=== PATIENT | male | born 1965 | race Caucasian/White ===

== ENCOUNTER 2021-09-07 02:33 | Outpatient (CLI) | payer BC, SELFPAY ==
[2021-09-07 11:10] LABS: Source Nasal/Nares
[2021-09-07 14:10] LABS: COVID-19 PCR Negative (Negative)
== END 2021-09-07 02:34 | disposition home or self-care (01) ==
LOC: LBO 02:33
PROVIDERS: PCP Family Medicine; Visit Provider Ophthalmology
DX: Z20.822 Contact with and (suspected) exposure to COVID-19 (principal); Z01.818 Encounter for other preprocedural examination
CPT/HCPCS: 87635

== ENCOUNTER 2021-09-10 06:59 | Day surgery (SDC) | payer BC, SELFPAY ==
[2021-09-10 07:06] VITALS: BP 122/89; PULSE 79; RESP 16; TEMP 36.3; O2SAT 97
[2021-09-10] MEDS: Tropicam./Phenyleph. (1/2.5%) 5 ML BTL OD ×3 (07:19→07:31)
--- NOTE | 2021-09-10 08:06 | ANES.PREOP_ITS ---
General Info Date of Service Date Performed: 09/10/21 Height: 5 ft 9.5 in Weight: 74.2 kg Body Mass Index (BMI): 23.8 Surgical Procedure: Operation Date: 09/10/21 08:40 Proposed Procedures Side Surgeon p Cataract Extraction with IOL Implant Right Joao Hogan MD Meds Allergies and Home Medications Allergies Allergy/AdvReac Type Severity Reaction Status Date / Time No Known Allergies Allergy Unverified 09/04/21 13:49 Home Medication Medication Instructions Recorded atorvastatin 10 mg PO DAILY 09/04/21 Current Visit Medications: Current Medications Generic Name Dose Route Start Last Admin Trade Name Freq PRN Reason Stop Dose Admin Acetaminophen 1,000 mg 09/10/21 06:00 Acetaminophen 500 Mg Tab PO Q4H PRN PRN Miscellaneous Medication 0 ml 09/10/21 06:00 Prednisolone 1%, Moxifloxacin 0.5%, Nepafenac 0.1% 5ml Btl OD DIRECTED [facility] Miscellaneous Medication 0 ml 09/10/21 06:00 09/10/21 07:26 Tropicam./Phenyleph. (1/2.5%) 5 Ml Btl OD 1 drp DIRECTED [facility] Administration Tetracaine HCl 0 ml 09/10/21 06:00 Tetracaine 0.5% 4 Ml Btl OD [facility] Medical History Medical History HLD (hyperlipidemia) Medial epicondylitis Rotator cuff syndrome of right shoulder Superficial vein thrombosis Tobacco Smoking/Tobacco Use Status: Former Tobacco Use Alcohol Alcohol Intake: current Alcohol intake frequency: a few times a week Substance Use Substance use: Never Substance use type: does not use Vital Signs and Lab Results Vital Signs Most Recent Vital Signs in EMR: Most Recent Vital Signs Temp Pulse Resp BP Pulse Ox 36.3 C L 79 16 122/89 97 09/10/21 07:06 09/10/21 07:06 09/10/21 07:06 09/10/21 07:06 09/10/21 07:06 Lab Results Blood Type / Crossmatch: No Data to Display Complete Blood Count: No Data to Display Complete Metabolic Panel: No Data to Display Liver Function Panel: No Data to Display Coagulation Panel: No Data to Display Cardiac Panel: No Data to Display Arterial Blood Gas: No Data to Display Venous Blood Gas: No Data to Display Pancreas Panel: No Data to Display Thyroid Panel: No Data to Display Infectious Disease: Coronavirus (COVID-19)(PCR) Negative (Negative) 09/07/21 08:58 09/07/21 Coronavirus 2019 Source Nasal/Nares 09/07/21 08:58 09/07/21 Blood Cultures: No Data to Display Toxicology Panel: No Data to Display Anesthesia Assessment and Plan Anesthesia History Personal History: No History of Anesthesia Complications Family History: No Family History of Anesthesia Complications Exercise Tolerance Exercise Tolerance: Metabolic Equivalents>4 Pertinent Negatives Pertinent Negatives: No Symptoms of GERD, No Major Cardiovascular Symptoms or Complaints, No Major Pulmonary Symptoms or Complaints and No History of CVA/TIA Cardiac & Pulmonary Exam Cardiac Exam: Normal S1/S2 Heart Sounds Pulmonary Exam: Clear Bilateral Breath Sounds Implantable Cardiac Device Does patient have a Pacemaker or an ICD?: No Airway Exam Known Difficult Airway: No Mallampati Class: 1 Mouth Opening: Normal (> 3cm) Thyromental Distance: Greater than 3 cm Neck Range of Motion: Full ROM Neck Circumference: Normal Teeth Condition: Normal Dentition ASA Classification ASA Score: ASA 2 Emergency Case?: No NPO Status NPO Status: NPO Clears >2 hours, Solids >8 hours Anesthesia Plan Resuscitation Status: Full Code Anesthesia Technique: MAC Anesthesia Airway Planned: Natural Airway Monitors Used: Standard Monitors
[2021-09-10 08:07] VITALS: BMI 23.8
[2021-09-10] MEDS: Povidone-Iodine Ophth 30 ML BTL (08:15)
[2021-09-10] MEDS: Lidocaine 2% Jelly 6 ML SYR (08:15)
[2021-09-10] MEDS: Tetracaine 0.5% 4 ML BTL OD (08:15)
[2021-09-10] MEDS: Duovisc Viscoelastic System EACH 1 EACH (08:22)
[2021-09-10] MEDS: Balanced Salt Soln.-PLUS 500 ML BAG (08:22)
[2021-09-10] MEDS: Trypan Blue 0.06% 0.5 ML SYR (08:25)
--- NOTE | 2021-09-10 08:44 | W.PM.DSUDISC ---
Discharge Plan Disposition Patient Disposition: HOME Condition: Good Discharge Details Attending Provider: Joao Hogan Primary Care Provider: Arnav Aranda Home Meds and New Rx's Prescriptions: No Action atorvastatin 10 mg tablet 10 mg PO DAILY RF: 0 Discharge Instructions Stand Alone Forms: Post-op Topical Cataract, Nuno Robles (DSU) Discharge Orders Discharge Orders: Discharge Order (Routine); Ordered 09/10/21 Ordered By: Joao Hogan DS: Diagnosis Discharge Diagnosis (1) Cortical cataract of right eye: Status: Resolved (2) Nuclear sclerotic cataract of right eye: Status: Resolved (3) Posterior subcapsular age-related cataract, right eye: Status: Resolved
[2021-09-10 08:45] VITALS: BP 79/46; PULSE 51; RESP 16; TEMP 36.6; O2SAT 96
--- NOTE | 2021-09-10 08:47 | ROE_ITS ---
Date of service: 09/10/21 Time of Service: 08:47 Operative Note Operative Note DATE OF PROCEDURE: 09/10/21 PRE-OP DIAGNOSIS: Nuclear/cortical/posterior subcapsular cataract, right eye Poor red reflex, right eye secondary to cataract POST-OP DIAGNOSIS: same PROCEDURE: Cataract extraction using phacoemulsification with intraocular lens implantation, right eye, using capsular staining with Vision Blue SURGEON: Joao Hogan ANESTHESIA TYPE: Local By Surgeon and MAC Refer to Anesthesia Record PATHOLOGY: none sent COMPLICATIONS: None Patient was transported to: same day Patient's condition: stable Implants: Jose [employer] Jose [employer] Opt[employer] Tecnis [id number] Indications: Progressive visual loss due to cataract, right eye Procedure Description: CATARACT SURGERY OPERATIVE REPORT PREOPERATIVE DIAGNOSIS: 1. Nuclear/cortical/posterior subcapsular cataract, right eye 2. Poor red reflex secondary to #1 POSTOPERATIVE DIAGNOSIS: Same OPERATION: 1. Cataract extraction using phacoemulsification with posterior chamber intraocular lens implant, right eye. 2. Capsular staining with Vision Blue IOL: IOL Selling Specialist/Model: Jose & Jose / ELEANOR Tecnis [id number] IOL Power: + 10.5 diopters IOL Serial Number: [id number] Optic Diameter: 6.0mm Haptic/Overall Diameter: 13.0mm PHACO INFO: Michael [employer] Radiourion Vision System with OZil and Active Fluidics Cumulative Dispersed Energy (CDE): 5.32 seconds SURGEON: Joao Hogan MD, JED ANESTHESIA: Monitored Anesthesia Care (MAC), with local sub-tenon's anesthetic infiltration COMPLICATIONS: None SPECIMENS: None INDICATIONS FOR PROCEDURE: The patient is a 56-year-old gentleman with history of high myopia who has developed a significant nuclear/cortical/posterior subcapsular cataract in the right eye. He is significantly symptomatic he desires cataract surgery and attempt to improve and maximize his vision. PROCEDURE: The correct surgical eye was identified and marked as the right eye and the pupil was dilated in the preoperative area using mydriatics and cycloplegics. The dilated pupil size was 8.0 mm. He elected to proceed without oral sedation. The patient was brought to the operating room where cardiopulmonary monitoring was instituted and surgical time-out was performed, confirming the correct operative eye and IOL power. Topical anesthesia was administered and ophthalmic povidone-iodine 5% was instilled into the conjunctival fornices. Lidocaine gel was applied to the cornea and the claudia-ocular area was prepped with Betadine 10% solution and draped in the usual sterile fashion for intraocular surgery, including an aperture drape. A Tegaderm transparent film dressing was cut in half and used to cover the lashes and lid margins. Care was taken to sequester the lashes and lid margins under the Tegaderm dressing. A lid speculum was placed between the lids of the operative eye and the Akiko-Dottie operating microscope was maneuvered into position. Stan scissors were then used to make a conjunctival buttonhole approximately 6mm posterior to the limbus in the inferonasal quadrant. Blunt dissection was carried out to expose bare sclera, and a blunt-tipped sub-tenon?s anesthesia cannula was introduced and passed posteriorly along the globe where non- preserved plain lidocaine was injected into posterior sub-Tenon?s space. A sideport knife was used to make a paracentesis port inferotemporally. Intraocular phenylephrine/lidocaine was injected into the anterior chamber. Air was injected into the anterior chamber, followed by Vision Blue, which was painted over the anterior capsule and then irrigated out with BSS. The anterior chamber was filled with viscoelastic. A 2.4mm keratome knife was used to create a half-thickness groove at the limbus and then to construct a three-plane near- clear corneal tunnel extending 2.0mm into clear cornea superiortemporally. A flap was raised on the anterior capsule and capsulorhexis forceps were used to complete a continuous curvilinear capsulorhexis of 5.5 mm. Balanced salt solution was then used to perform cortical cleaving hydrodissection and nuclear hydrodelineation until the lens could be freely rotated within the capsular bag. The lens nucleus was then disassembled and removed within the capsular bag and iris plane using phacoemulsification. Residual cortical material was removed using the I/A handpiece. The posterior capsule was carefully polished to remove as much residual lens epithelial cells as safely possible. The capsular bag was then inflated and the anterior chamber deepened with viscoelastic. The lens implant described above was inserted into the capsular bag using the ELEANOR [place] Injector. A Kuglen hook was used to dial the IOL into position. Residual viscoelastic was then removed first from posterior to the IOL, then from the anterior chamber using the I/A handpiece. The lens implant was noted to center nicely within the capsular bag. The incisions were stromally hydrated, and the anterior chamber was reformed using BSS. Then 0.5cc of moxifloxacin 1.0mg/ml were injected into the capsular bag and anterior chamber. The incisions were checked with a Weck spear and found to be secure. Several drops of ophthalmic povidone-iodine 5% were then applied to the eye followed by two drops of Imprimis combination prednisolone/moxifloxacin/nepafenac solution. The drapes were removed and a clear plastic protective eye shield was placed over the eye. The patient was then returned to Same Day Surgery in stable condition.
--- NOTE | 2021-09-10 08:49 | W.ANESPOSTOP ---
Postoperative Evaluation Date, Time and Location Date Performed: 09/10/21 Time Performed: 08:55 Patient Location: Day Surgery Unit Vital Signs Most Recent Imported Vital Signs: Most Recent Vital Signs Temp Pulse Resp BP Pulse Ox 36.3 C L 79 16 122/89 97 09/10/21 07:06 09/10/21 07:06 09/10/21 07:06 09/10/21 07:06 09/10/21 07:06 Most Recent Manually Entered Vital Signs: Adult Blood Pressure: 101/69 Heart Rate: 70 Respirations: 10 Oxygen Saturation (%): 98 Temperature (C): 36.3 C Pain Score (0-10 Scale): 0 Pain Score Most Recent Pain Score: Most Recent Pain Score Pain Level 0 09/10/21 07:06 Assessment Mental Status: Awake (Alert & Oriented to Patient Baseline) Airway and Respiratory Function: Patent airway with normal (patient baseline) respiratory exam Cardiovascular Function: Hemodynamically Stable Hydration Status: Adequately Hydrated Nausea & Vomiting: No Nausea or Vomiting Pain: Pt. Denies Any Pain Peripheral Nerve Block: Patient did not receive a nerve block
[2021-09-10 08:50] VITALS: BP 107/75; PULSE 80; RESP 16; O2SAT 96
[2021-09-10 08:56] VITALS: BP 101/69; PULSE 70; RESP 10; TEMPC 36.3; O2SAT 98
== END 2021-09-10 09:25 | disposition home or self-care (01) ==
PROVIDERS: PCP Family Medicine; Visit Provider Ophthalmology
PROC: (CPT 66984; principal; 2021-09-10 08:30)
DX: H25.041 Posterior subcapsular polar age-related cataract, right eye (principal); E78.5 Hyperlipidemia, unspecified
CPT/HCPCS: 66984; V2632

== ENCOUNTER 2021-09-21 00:56 | Outpatient (CLI) | payer BC, SELFPAY ==
[2021-09-21 11:06] LABS: Source Nasal/Nares
[2021-09-21 22:07] LABS: COVID-19 PCR Negative (Negative)
== END 2021-09-21 00:57 | disposition home or self-care (01) ==
LOC: LBO 00:56
PROVIDERS: PCP Family Medicine; Visit Provider Ophthalmology
DX: Z20.822 Contact with and (suspected) exposure to COVID-19 (principal); Z01.818 Encounter for other preprocedural examination
CPT/HCPCS: 87635

== ENCOUNTER 2021-09-24 06:54 | Day surgery (SDC) | payer BC, SELFPAY ==
[2021-09-24] MEDS: Tropicam./Phenyleph. (1/2.5%) 5 ML BTL OS ×3 (07:12→07:24)
[2021-09-24 07:13] VITALS: BP 108/72; PULSE 77; RESP 16; TEMP 36.5; O2SAT 96
--- NOTE | 2021-09-24 07:33 | W.ANESPRE ---
General Info Date of Service Date Performed: 09/24/21 Height: 5 ft 9.5 in Weight: 74.2 kg Body Mass Index (BMI): 23.8 Surgical Procedure: Operation Date: 09/24/21 08:40 Proposed Procedures Side Surgeon p Cataract Extraction with IOL Implant Left Joao Hogan MD Meds Allergies and Home Medications Allergies Allergy/AdvReac Type Severity Reaction Status Date / Time No Known Allergies Allergy Unverified 09/24/21 07:11 Home Medication Medication Instructions Recorded atorvastatin 10 mg PO DAILY 09/04/21 Current Visit Medications: Current Medications Generic Name Dose Route Start Last Admin Trade Name Freq PRN Reason Stop Dose Admin Acetaminophen 1,000 mg 09/24/21 06:00 Acetaminophen 500 Mg Tab PO Q4H PRN PRN Miscellaneous Medication 0 ml 09/24/21 06:00 Prednisolone 1%, Moxifloxacin 0.5%, Nepafenac 0.1% 5ml Btl OS DIRECTED [facility] Miscellaneous Medication 0 ml 09/24/21 06:00 09/24/21 07:24 Tropicam./Phenyleph. (1/2.5%) 5 Ml Btl OS 1 drp DIRECTED [facility] Administration Tetracaine HCl 0 ml 09/24/21 06:00 Tetracaine 0.5% 4 Ml Btl OS DIRECTED [facility] PFSH Active Problems Active Problems: Problem Status Onset Code Posterior subcapsular age-related cataract of left eye H25.042 Nuclear sclerotic cataract of left eye H25.12 Posterior subcapsular age-related cataract, right eye H25.041 Nuclear sclerotic cataract of right eye H25.11 Cortical cataract of right eye H26.9 Medical History Medical History HLD (hyperlipidemia) Medial epicondylitis Rotator cuff syndrome of right shoulder Superficial vein thrombosis Tobacco Smoking/Tobacco Use Status: Former Tobacco Use Alcohol Alcohol Intake: current Alcohol intake frequency: a few times a week Substance Use Substance use: Never Substance use type: does not use Vital Signs and Lab Results Vital Signs Most Recent Vital Signs in EMR: Most Recent Vital Signs Temp Pulse Resp BP Pulse Ox 36.5 C 77 16 108/72 96 09/24/21 07:13 09/24/21 07:13 09/24/21 07:13 09/24/21 07:13 09/24/21 07:13 Lab Results Blood Type / Crossmatch: No Data to Display Complete Blood Count: No Data to Display Complete Metabolic Panel: No Data to Display Liver Function Panel: No Data to Display Coagulation Panel: No Data to Display Cardiac Panel: No Data to Display Arterial Blood Gas: No Data to Display Venous Blood Gas: No Data to Display Pancreas Panel: No Data to Display Thyroid Panel: No Data to Display Infectious Disease: Coronavirus (COVID-19)(PCR) Negative (Negative) 09/21/21 09:13 09/21/21 Coronavirus 2019 Source Nasal/Nares 09/21/21 09:13 09/21/21 Blood Cultures: No Data to Display Toxicology Panel: No Data to Display Anesthesia Assessment and Plan Anesthesia History Personal History: No History of Anesthesia Complications Family History: No Family History of Anesthesia Complications Exercise Tolerance Exercise Tolerance: Metabolic Equivalents>4 Pertinent Negatives Pertinent Negatives: No Symptoms of GERD Cardiac & Pulmonary Exam Cardiac Exam: Normal S1/S2 Heart Sounds Pulmonary Exam: Clear Bilateral Breath Sounds Implantable Cardiac Device Does patient have a Pacemaker or an ICD?: No Airway Exam Known Difficult Airway: No Mallampati Class: 2 Mouth Opening: Normal (> 3cm) Thyromental Distance: Greater than 3 cm Neck Range of Motion: Full ROM Neck Circumference: Normal Teeth Condition: Normal Dentition ASA Classification ASA Score: ASA 2 Emergency Case?: No NPO Status NPO Status: NPO Clears >2 hours, Solids >8 hours Anesthesia Plan Resuscitation Status: Full Code Anesthesia Technique: MAC Anesthesia Airway Planned: Natural Airway Monitors Used: Standard Monitors
[2021-09-24 07:36] VITALS: BMI 23.8
[2021-09-24 07:50] VITALS: BMI 23.8
[2021-09-24] MEDS: Tetracaine 0.5% 4 ML BTL OS (08:19)
[2021-09-24] MEDS: Duovisc Viscoelastic System EACH 1 EACH (08:20)
[2021-09-24] MEDS: Balanced Salt Soln.-PLUS 500 ML BAG (08:20)
[2021-09-24] MEDS: Lidocaine 2% Jelly 6 ML SYR (08:21)
[2021-09-24] MEDS: Povidone-Iodine Ophth 30 ML BTL (08:22)
[2021-09-24 08:42] VITALS: BP 114/85; PULSE 69; RESP 16; TEMP 36.2; O2SAT 96
--- NOTE | 2021-09-24 08:42 | W.PM.DSUDISC ---
Discharge Plan Disposition Patient Disposition: HOME Condition: Good Discharge Details Attending Provider: Joao Hogan Primary Care Provider: Arnav Aranda Home Meds and New Rx's Prescriptions: No Action atorvastatin 10 mg tablet 10 mg PO DAILY RF: 0 Discharge Instructions Stand Alone Forms: Post-op Topical Cataract, Nuno Robles (DSU) Discharge Orders Discharge Orders: Discharge Order (Routine); Ordered 09/24/21 Ordered By: Joao Hogan DS: Diagnosis Discharge Diagnosis (1) Posterior subcapsular age-related cataract of left eye: Status: Resolved (2) Nuclear sclerotic cataract of left eye: Status: Resolved
--- NOTE | 2021-09-24 08:43 | ROE_ITS ---
Date of service: 09/24/21 Time of Service: 08:43 Operative Note Operative Note DATE OF PROCEDURE: 09/24/21 PRE-OP DIAGNOSIS: Nuclear/posterior subcapsular cataract, left eye POST-OP DIAGNOSIS: same PROCEDURE: Cataract extraction using phacoemulsification with intraocular lens implant, left eye SURGEON: Joao Hogan ANESTHESIA TYPE: Local By Surgeon and MAC Refer to Anesthesia Record PATHOLOGY: none sent COMPLICATIONS: None Patient was transported to: same day Patient's condition: stable Implants: Jose and Jose / [employer] Opt[employer] Tecnis [id number] Indications: Progressive decreased vision due to cataract, left eye Procedure Description: CATARACT SURGERY OPERATIVE REPORT PREOPERATIVE DIAGNOSIS: 1. Nuclear/posterior subcapsular cataract, left eye POSTOPERATIVE DIAGNOSIS: Same OPERATION: 1. Cataract extraction using phacoemulsification with posterior chamber intraocular lens implant, left eye. IOL: IOL Jewelry Bench Molder/Model: Jose & Jose / ELEANOR Tecnis [id number] IOL Power: + 10.5 diopters IOL Serial Number: [id number] Optic Diameter: 6.0 mm Haptic/Overall Diameter: 13.0 mm PHACO INFO: Michael [employer]bs[employer]urion Vision System with OZil and Active Fluidics Cumulative Dispersed Energy (CDE): 5.17 seconds SURGEON: Joao Hogan MD, JED ANESTHESIA: Monitored A [facility] (MAC), with local sub-tenon's anesthetic infiltration COMPLICATIONS: None SPECIMENS: None INDICATIONS FOR PROCEDURE: Patient is a 56-year-old gentleman with history of myopia who has developed symptomatic bilateral cataract. He has already undergone cataract surgery in the right eye and is doing well postoperatively. He now presents for cataract surgery in the left eye. PROCEDURE: The correct surgical eye was identified and marked as the left eye and the pupil was dilated in the preoperative area using mydriatics and cycloplegics. The dilated pupil size was 8.0 mm. Oral sedation was administered in the form of an Imprimis MKO Melt (midazolam 3mg/ketamine 25mg/ondansetron 2mg). The patient was brought to the operating room where cardiopulmonary monitoring was instituted and surgical time-out was performed, confirming the correct operative eye and IOL power. Topical anesthesia was administered and ophthalmic povidone-iodine 5% was instilled into the conjunctival fornices. Lidocaine gel was applied to the cornea and the claudia-ocular area was prepped with Betadine 10% solution and draped in the usual sterile fashion for intraocular surgery, including an aperture drape. A Tegaderm transparent film dressing was cut in half and used to cover the lashes and lid margins. Care was taken to sequester the lashes and lid margins under the Tegaderm dressing. A lid speculum was placed between the lids of the operative eye and the Akiko-Dottie operating microscope was maneuvered into position. Stan scissors were then used to make a conjunctival buttonhole approximately 6mm posterior to the limbus in the inferonasal quadrant. Blunt dissection was carried out to expose bare sclera, and a blunt-tipped sub-tenon?s anesthesia cannula was introduced and passed posteriorly along the globe where non- preserved plain lidocaine was injected into posterior sub-Tenon?s space. A sideport knife was used to make a paracentesis port superiorly/superiortemporally. Intraocular phenylephrine/lidocaine was injected int the anterior chamber.. The anterior chamber was filled with viscoelastic. A 2.4mm keratome knife was used to create a half-thickness groove at the limbus and then to construct a three-plane near-clear corneal tunnel extending 2.0mm into clear cornea at the 3:00 position. A flap was raised on the anterior capsule and capsulorhexis forceps were used to complete a continuous curvilinear capsulorhexis of 5.5 mm. Balanced salt solution was then used to perform cortical cleaving hydrodissection and nuclear hydrodelineation until the lens could be freely rotated within the capsular bag. The lens nucleus was then disassembled and removed within the capsular bag and iris plane using phacoemulsification. Residual cortical material was removed using the 45-degree angled silicone I/A tip with 0.3mm port. The posterior capsule was carefully polished to remove as much residual lens epithelial cells as safely possible. The capsular bag was then inflated and the anterior chamber deepened with viscoelastic. The lens implant described above was inserted into the capsular bag using the ELEANOR [place] Injector. A Kuglen hook was used to dial the IOL into position. Residual viscoelastic was then removed first from posterior to the IOL, then from the anterior chamber using the I/A handpiece. The lens implant was noted to center nicely within the capsular bag. The incisions were stromally hydrated, and the anterior chamber was reformed using BSS. Then 0.5cc of moxifloxacin 1.0mg/ml were injected into the capsular bag and anterior chamber. The incisions were checked with a Weck spear and found to be secure. Several drops of ophthalmic povidone-iodine 5% were then applied to the eye followed by two drops of Imprimis combination prednisolone/moxifloxacin/nepafenac solution. The drapes were removed and a clear plastic protective eye shield was placed over the eye. The patient was then returned to Same Day Surgery in stable condition.
--- NOTE | 2021-09-24 08:50 | W.ANESPOSTOP ---
Postoperative Evaluation Date, Time and Location Date Performed: 09/24/21 Time Performed: 08:50 Patient Location: Day Surgery Unit Vital Signs Most Recent Imported Vital Signs: Most Recent Vital Signs Temp Pulse Resp BP Pulse Ox 36.2 C L 69 16 114/85 96 09/24/21 08:42 09/24/21 08:42 09/24/21 08:42 09/24/21 08:42 09/24/21 08:42 Pain Score Most Recent Pain Score: Most Recent Pain Score Pain Level 0 09/24/21 08:42 Assessment Mental Status: Awake (Alert & Oriented to Patient Baseline) Airway and Respiratory Function: Patent airway with normal (patient baseline) respiratory exam Cardiovascular Function: Hemodynamically Stable Hydration Status: Adequately Hydrated Nausea & Vomiting: No Nausea or Vomiting Pain: Pt. Denies Any Pain Peripheral Nerve Block: Patient did not receive a nerve block
[2021-09-24 09:18] VITALS: BP 111/73; PULSE 66; RESP 16; TEMP 36.9; O2SAT 97
== END 2021-09-24 09:37 | disposition home or self-care (01) ==
PROVIDERS: PCP Family Medicine; Visit Provider Ophthalmology
PROC: (CPT 66984; principal; 2021-09-24 08:30)
DX: H25.042 Posterior subcapsular polar age-related cataract, left eye (principal)
CPT/HCPCS: 66984; V2632

== ENCOUNTER 2023-06-02 18:30 | Emergency (ER) | payer BC, SELFPAY ==
--- NOTE | 2023-06-02 18:30 | DI.RAD_ITS ---
Exam(s) XR KNEE LT 3V AP,LAT,BENOIT EXAM: XR KNEE LT 3V AP,LAT,BENOIT CLINICAL HISTORY: injury. TECHNIQUE: 2D digital imaging was performed. COMPARISON: CT CT LOWER EXTREMITY LT WO from 06/02/2023 FINDINGS: 3 views There is soft tissue swelling anteriorly. There are multiple fracture lines in the patella without s ignificant displacement. There is also prominent joint effusion-hemarthrosis. Tibial plateau and fe moral condyles appear intact. Incidentally noted is an osteochondroma at the femoral neck level, poi nting inferiorly. IMPRESSION: Acute comminuted patellar fracture. Joint effusion-hemarthrosis. DATA REPOSITORY: RADIATION DOSE DELIVERED:
[2023-06-02 18:32] VITALS: BP 137/83; PULSE 77; RESP 16; TEMP 37.2; O2SAT 99
--- NOTE | 2023-06-02 18:38 | ED.GENADUL_ITS ---
Discharge Plan Disposition Patient Disposition: Home Discharge Details Clinical Impression: Fracture, patella Primary Care Provider: Arnav Aranda ED Provider: Silvio Castorena Home Meds and New Rx's Prescriptions: New hydrocodone-acetaminophen 5-325 mg tablet 1 tab PO Q6H PRN (Reason: pain) Qty: 10 0RF No Action atorvastatin 10 mg tablet 5 mg PO DAILY Patient Comments: TAKE 1 TABLET BY MOUTH EVERY DAY FOR HIGH CHOLESTEROL Discharge Instructions Instructions: Patellar Fracture (ED) HPI General Date/Time Provider Initiated Documentation: 06/02/23 18:33 . HPI Narrative: 57 year old male presents to the ED via EMS after slip and fall, injurying his left knee. He was about to start fly fishing when he stepped out onto a large branch, that broke away, causing him to fall down small embankment and landed on a rock with his left knee. Has pain well localized, unable top bend fully or bear weight. Denies any other injuries. Related Data Home Medications Medication Instructions Recorded Confirmed atorvastatin 10 mg tablet 5 mg PO DAILY 09/04/21 06/02/23 hydrocodone 5 mg-acetaminophen 325 1 tab PO Q6H PRN pain #10 tabs 06/02/23 mg tablet Previous Rx's Medication Instructions Recorded hydrocodone 5 mg-acetaminophen 325 1 tab PO Q6H PRN pain #10 tabs 06/02/23 mg tablet Allergies Allergy/AdvReac Type Severity Reaction Status Date / Time No Known Allergies Allergy Unverified 06/02/23 18:35 General Stated Complaint: Orthopedic WENDY: 4 PFSH All Active Problems (Updated 06/02/23 @ 19:38 by Silvio Castorena MD) Fracture, patella (Acute) Medical History HLD (hyperlipidemia) Medial epicondylitis Rotator cuff syndrome of right shoulder Superficial vein thrombosis Social History Smoking/Tobacco Use Status: Former Tobacco Use Quit Date: 10/13/89 Smoking risk assessment performed?: Yes Alcohol Intake: current Alcohol Intake frequency: a few times a week Drug use: Never Substance use type: does not use Housing: house Do you feel safe at home: Yes Do you feel safe in your relationship?: Yes Exam Extrem Other: ~2 cm abraision inferior medial aspect patella, diffuse swelling. Limited ROM due to pain, able to flex ~20-30 degrees. Was able to briefly lift straight leg on stretcher. NVI distally Course I spoke to ortho, reviewed xrays, patellar fx, would like CT, then can place knee immobilizer, weight bear as tolerated and f/u office. Discussed plan with pt, he is comfortable with this plan. Vital Signs Vital signs: Vital Signs Temperature 37.2 C 06/02/23 18:32 Pulse 77 06/02/23 18:32 Respiratory Rate 16 06/02/23 18:32 Blood Pressure 137/83 06/02/23 18:32 Pulse Oximetry 99 06/02/23 18:32 Temperature 37.2 C 06/02/23 18:32 Temperature Source Skin 06/02/23 18:32 Pulse 77 06/02/23 18:32 Respiratory Rate 16 06/02/23 18:32 Blood Pressure 137/83 06/02/23 18:32 Blood Pressure Position Sitting 06/02/23 18:32 Pulse Oximetry 99 06/02/23 18:32 Oxygen Delivery Method Room Air 06/02/23 18:32 Oxygen Flow Rate 0 06/02/23 18:32 Pain Level 4 06/02/23 18:32
--- NOTE | 2023-06-02 19:00 | DI.CT_ITS ---
Exam(s) CT LOWER EXTREMITY LT WO EXAM: CT LOWER EXTREMITY LT WO CLINICAL HISTORY: patella fx. TECHNIQUE: Imaging Protocol: Axial computed tomography images with coronal and sagittal reformatted images were created and reviewed. CONTRAST MATERIAL: Intravenous: Omnipaque 350 Contrast volume:structured data in ml Contrast route:I V - Oral: yes / no COMPARISON: No exams were available for comparison FINDINGS: OSSEOUS: There is an acute comminuted fracture of the patella. Multiple fragments with some displacement. No evidence of tibial plateau fracture. An femoral condyles are intact as are the patellar head and ne ck. There is no osteo chondroma incidentally noted coming off the medial aspect of the fibular neck, measuring 1.3 cm. Joint effusion-lipohemarthrosis noted. No obvious degenerative changes. IMPRESSION: Acute comminuted fracture of the patella with some displacement. Joint effusion-hemarthrosis. RADIATION DOSE DELIVERED: 236.57mGy.cm Total DLP DATA REPOSITORY: All CT scans at this facility are submitted to the National Radiology Data Registry (NRDR) Dose Index Registry (DIR) with the [employer] ([employer]). RADIATION OPTIMIZATION: All CT scans at this facility use at least one of these dose optimization te chniques: automated exposure control; mA and/or kV adjustment per patient size (includes targeted exa ms where dose is matched to clinical indication); or iterative reconstruction.
--- NOTE | 2023-06-02 19:09 | DI.VRAD_ITS ---
PROCEDURE INFORMATION: Exam: XR Left Knee Exam date and time: 06/02/2023 6:46 PM Age: 57 years old Clinical indication: Injury or trauma; Fall; Blunt trauma; Left; Injury date: 06/02/23; Patient HX: Knee injury TECHNIQUE: Imaging protocol: Radiologic exam of the left knee. Views: 3 views. COMPARISON: No relevant prior studies available. FINDINGS: Bones/joints: Minimal degenerative spurring of the medial tibial spine. Moderate-sized knee joint effusion. Several lucencies within the patella, with minimal articular surface incongruity, likely minimally displaced fractures, not well characterized on this study. Soft tissues: Mild prepatellar soft tissue swelling. IMPRESSION: 1. Several lucencies within the patella, with minimal articular surface incongruity, likely minimally displaced fractures, not well characterized on this study. Recommend CT for definitive evaluation. 2. Moderate-sized knee joint effusion. 3. Mild prepatellar soft tissue swelling. Dictated and Authenticated by: Gee Head MD. Ordering:ASHER Anguiano MD
--- NOTE | 2023-06-02 19:44 | DI.VRAD_ITS ---
PROCEDURE INFORMATION: Exam: CT Left Lower Extremity With Contrast, Knee Exam date and time: 06/02/2023 7:27 PM Age: 57 years old Clinical indication: Injury or trauma; Blunt trauma; Knee; Left; Injury date: 06/02/23; Injury details: Fall. Patella FX TECHNIQUE: Imaging protocol: CT of the left lower extremity with intravenous contrast was performed. Exam focused on the knee. Radiation optimization: All CT scans at this facility use at least one of these dose optimization techniques: automated exposure control; mA and/or kV adjustment per patient size (includes targeted exams where dose is matched to clinical indication); or iterative reconstruction. COMPARISON: CR XR KNEE LT 3V AP,LAT,BENOIT 06/02/2023 6:46 PM FINDINGS: Bones/joints: Moderate-sized lipohemarthrosis. Acute, displaced, multi fragmentary fracture of the patella. Minimal degenerative medial tibial spine spurring. Soft tissues: Prepatellar soft tissue swelling. IMPRESSION: Acute, displaced, multi fragmentary fracture of the patella. Dictated and Authenticated by: Gee Head MD. Ordering:ASHER Anguiano MD
== END 2023-06-02 20:00 | disposition home or self-care (01) ==
LOC: ER 20:03
PROVIDERS: Emergency Provider Emergency Medicine; PCP Family Medicine
DX: S82.042A Displaced comminuted fracture of left patella, initial encounter for closed fracture (principal); M25.462 Effusion, left knee; Z87.891 Personal history of nicotine dependence; W17.81XA Fall down embankment (hill), initial encounter; Y93.01 Activity, walking, marching and hiking; Y92.89 Other specified places as the place of occurrence of the external cause; Y99.9 Unspecified external cause status
CPT/HCPCS: 73562; 99285; 73700; 99284

== ENCOUNTER 2023-06-05 09:12 | Outpatient (CLI) | payer BC, SELFPAY ==
--- NOTE | 2023-06-05 09:00 | DI.RAD_ITS ---
Exam(s) XR KNEE LT 2V AP,LAT EXAM: XR KNEE LT 2V AP,LAT CLINICAL HISTORY: left patellar fracture. TECHNIQUE: 2D digital imaging was performed of the left knee. Two images were obtained. AP lateral views were obtained. COMPARISON: CR,XR XR KNEE LT 3V AP,LAT,BENOIT from 06/02/2023 FINDINGS: BONES: There has been no change in alignment of the comminuted patellar fracture. No bony destructi ve lesion is seen. JOINTS: The knee is normally aligned. There is a persistent hemarthrosis present. No loose body. SOFT TISSUE: Normal. IMPRESSION: Stable alignment of the patellar fracture and hemarthrosis. DATA REPOSITORY: RADIATION DOSE DELIVERED:
== END 2023-06-05 09:13 | disposition home or self-care (01) ==
LOC: DIORS 09:12
PROVIDERS: PCP Family Medicine; Visit Provider Physician Assistant
DX: S82.041D Displaced comminuted fracture of right patella, subsequent encounter for closed fracture with routine healing (principal); X58.XXXD Exposure to other specified factors, subsequent encounter
CPT/HCPCS: 73560

== ENCOUNTER 2023-06-12 13:23 | Outpatient (CLI) | payer BC, SELFPAY ==
--- NOTE | 2023-06-12 09:00 | DI.RAD_ITS ---
Exam(s) XR KNEE LT 2V AP,LAT EXAM: XR KNEE LT 2V AP,LAT CLINICAL HISTORY: F/U FRACTURE. TECHNIQUE: 2D digital imaging was performed of the left knee. Two images were obtained. AP and lat eral views were obtained. COMPARISON: CR XR KNEE LT 2V AP,LAT from 06/05/2023 FINDINGS: BONES: There has been no change in alignment of the comminuted patellar fracture. No bony destructi ve lesion is seen. JOINTS: The knee is normally aligned. There is a persistent hemarthrosis. No loose body. SOFT TISSUE: Normal. IMPRESSION: Stable alignment of the patellar fracture. DATA REPOSITORY: RADIATION DOSE DELIVERED:
== END 2023-06-12 13:24 | disposition home or self-care (01) ==
LOC: DIORS 13:24
PROVIDERS: PCP Family Medicine; Visit Provider Student in an Organized Health Care Education/Training Program
DX: S82.042D Displaced comminuted fracture of left patella, subsequent encounter for closed fracture with routine healing (principal); X58.XXXD Exposure to other specified factors, subsequent encounter; Z47.89 Encounter for other orthopedic aftercare
CPT/HCPCS: 73560

== ENCOUNTER 2023-06-19 13:47 | Outpatient (CLI) | payer BC, SELFPAY ==
--- NOTE | 2023-06-19 12:08 | DI.RAD_ITS ---
Exam(s) XR KNEE LT 2V AP,LAT EXAM: XR KNEE LT 2V AP,LAT CLINICAL HISTORY: F/U FRACTURE. TECHNIQUE: 2D digital imaging was performed of the left knee. Two images were obtained. AP and lat eral views were obtained. COMPARISON: CR XR KNEE LT 2V AP,LAT from 06/12/2023 FINDINGS: BONES: There is a stable comminuted fracture of the patella. No new fractures identified. No bony de structive lesion is seen. JOINTS: The knee is normally aligned. There is a joint effusion. No loose body. SOFT TISSUE: Normal. IMPRESSION: Stable patellar fracture. DATA REPOSITORY: RADIATION DOSE DELIVERED:
== END 2023-06-19 13:48 | disposition home or self-care (01) ==
LOC: DIORS 13:47
PROVIDERS: PCP Family Medicine; Visit Provider Student in an Organized Health Care Education/Training Program
DX: S82.042D Displaced comminuted fracture of left patella, subsequent encounter for closed fracture with routine healing (principal); X58.XXXD Exposure to other specified factors, subsequent encounter
CPT/HCPCS: 73560

== ENCOUNTER 2023-07-10 13:59 | Outpatient (CLI) | payer BC, SELFPAY ==
--- NOTE | 2023-07-10 08:30 | DI.RAD_ITS ---
Exam(s) XR KNEE LT 2V AP,LAT EXAM: XR KNEE LT 2V AP,LAT CLINICAL HISTORY: L PATELLA FX. TECHNIQUE: 2D digital imaging was performed. COMPARISON: CR XR KNEE LT 2V AP,LAT from 06/19/2023 FINDINGS: 3 views The appearance of the patellar fracture is again stable. Fracture line still evident but no signific ant displacement. Amount of overlying soft tissue swelling has slightly further decreased. Joint ef fusion is again noted. No other fractures identified. No degenerative narrowing of the joint space. IMPRESSION: Stable appearance of patellar fracture. DATA REPOSITORY: RADIATION DOSE DELIVERED:
== END 2023-07-10 14:00 | disposition home or self-care (01) ==
LOC: DIORS 14:00
PROVIDERS: PCP Family Medicine; Visit Provider Physician Assistant
DX: S82.042D Displaced comminuted fracture of left patella, subsequent encounter for closed fracture with routine healing (principal); X58.XXXD Exposure to other specified factors, subsequent encounter
CPT/HCPCS: 73560

== ENCOUNTER 2023-07-30 14:40 | Outpatient (CLI) | payer BC, SELFPAY ==
--- NOTE | 2023-07-30 14:00 | DI.RAD_ITS ---
Exam(s) XR KNEE LT 2V AP,LAT EXAM: XR KNEE LT 2V AP,LAT CLINICAL HISTORY: F/U FRACTURE. TECHNIQUE: 2D digital imaging was performed of the left knee. Two images were obtained. AP and lat eral views were obtained. COMPARISON: CR XR KNEE LT 2V AP,LAT from 07/10/2023 FINDINGS: BONES: There has been no significant change in alignment of the patellar fracture. No new fracture is seen. No bony destructive lesion is seen. JOINTS: The knee is normally aligned. There is a small joint effusion. No loose body. SOFT TISSUE: Normal. IMPRESSION: Stable alignment of the patellar fracture. DATA REPOSITORY: RADIATION DOSE DELIVERED:
== END 2023-07-30 14:41 | disposition home or self-care (01) ==
LOC: DIORS 14:40
PROVIDERS: PCP Family Medicine; Visit Provider Physician Assistant
DX: S82.022D Displaced longitudinal fracture of left patella, subsequent encounter for closed fracture with routine healing (principal); X58.XXXD Exposure to other specified factors, subsequent encounter
CPT/HCPCS: 73560

== ENCOUNTER 2023-08-22 09:05 | Outpatient (CLI) | payer BC, SELFPAY ==
--- NOTE | 2023-08-22 08:45 | DI.RAD_ITS ---
Exam(s) XR KNEE LT 2V AP,LAT EXAM: XR KNEE LT 2V AP,LAT CLINICAL HISTORY: LEFT PATELLA FX. TECHNIQUE: 2D digital imaging was performed. Three views. COMPARISON: CR XR KNEE LT 2V AP,LAT from 07/30/2023 FINDINGS: BONES: Continued healing of the patellar fracture. No bony destructive lesion is seen. JOINTS: Joint spaces are maintained. A joint effusion remains present. SOFT TISSUE: Normal. IMPRESSION: Continued healing of patellar fracture. DATA REPOSITORY: RADIATION DOSE DELIVERED:
== END 2023-08-22 09:06 | disposition home or self-care (01) ==
LOC: DIORS 09:05
PROVIDERS: PCP Family Medicine; Referring Provider Family Medicine; Visit Provider Student in an Organized Health Care Education/Training Program
DX: S82.045D Nondisplaced comminuted fracture of left patella, subsequent encounter for closed fracture with routine healing (principal); X58.XXXD Exposure to other specified factors, subsequent encounter
CPT/HCPCS: 73560